=== PATIENT | female | born 1940 | race Caucasian/White ===

== ENCOUNTER 2022-08-10 13:44 | Emergency (ER) | payer MEDICARE ==
[~2022-08-10] VITALS: Ht 167.6 cm; Wt 59.0 kg
--- NOTE | 2022-08-10 13:45 | NUR ---
Patient examined by physician family at bedside.
[2022-08-10] MEDS ORDERED: ACETAMINOPHEN ES 500 MG TABLET PO ONE (14:00)
[2022-08-10] MEDS ORDERED: ACETAMINOPHEN ES 500 MG TABLET ONE (14:04)
--- NOTE | 2022-08-10 14:15 | NUR ---
left brow laceration irrigated with NS and steri-strips applied
--- NOTE | 2022-08-10 14:25 | NUR ---
Pt c/o mild H/A, and soreness left side of chest from fall. neuro assessment WNL. Assisted to WC and taken for head CT and xray.
--- NOTE | 2022-08-10 14:55 | NUR ---
Retuned from CT. neuro intact. Per Pt H/A decreased, oozing from brow laceration, steri-strips intact, light pressure held on site.
--- NOTE | 2022-08-10 15:57 | NUR ---
dcd instructions given to pt. who verbalized understanding and left room accompanied by steady gait. No c/of pain
== END 2022-08-10 15:58 | disposition home or self-care (01) ==
LOC: ER 13:47
DX: S01.81XA Laceration without foreign body of other part of head, initial encounter (principal); S20.211A Contusion of right front wall of thorax, initial encounter; S80.212A Abrasion, left knee, initial encounter; S60.417A Abrasion of left little finger, initial encounter; Z90.49 Acquired absence of other specified parts of digestive tract; Z88.2 Allergy status to sulfonamides; Z88.5 Allergy status to narcotic agent; W01.0XXA Fall on same level from slipping, tripping and stumbling without subsequent striking against object, initial encounter; Y93.89 Activity, other specified; Y92.89 Other specified places as the place of occurrence of the external cause; Y99.8 Other external cause status
CPT/HCPCS: 70450; 71250; 72125; A4663; A9150